=== PATIENT | male | born 2000 | race Caucasian/White ===

== ENCOUNTER 2019-02-06 21:08 | Emergency (ER) | payer OTHER ==
[~2019-02-06] VITALS: Ht 182.9 cm; Wt 104.3 kg
[~2019-02-06 21:08] MED LIST: CLARITIN10 MG PO; EPIPEN 2-P0.3 MG/0.3 IM; MEDROLDOSEPACK PO; SINGULAIR4 MG PO
[2019-02-06] MEDS ORDERED: PROZAC20 MG PO (21:21)
[2019-02-06 21:48] LABS: HEMATOCRIT 47.9 % (42.0-52.0); MCH 28.3 pg (26.0-34.0); MCHC 33.4 g/dL (28.0-37.0); MCV 84.7 fL (80.0-100.0); RBC 5.65 mil/uL (4.50-6.00); RDW 13.6 % (10.5-14.5)
[2019-02-06 21:52] LABS: CALCIUM 9.9 mg/dL (8.5-10.1); CREATININE 1.1 mg/dL (0.7-1.3)
[2019-02-06 21:57] LABS: AMP/METHAMP Negative (Negative); BARBITURATES Negative (Negative); BENZODIAZEPINES Negative (Negative); COCAINE Negative (Negative); METHADONE Negative (Negative); OPIATES Negative (Negative); PCP Negative (Negative)
[2019-02-07 00:44] VITALS: BP 153/83
== END 2019-02-07 00:46 | disposition home or self-care (01) ==
LOC: ER 21:08
PROVIDERS: Emergency Medicine
DX: R45.851 Suicidal ideations (principal); J45.909 Unspecified asthma, uncomplicated; F32.9 Major depressive disorder, single episode, unspecified; F41.9 Anxiety disorder, unspecified; Z91.018 Allergy to other foods; Z91.010 Allergy to peanuts